=== PATIENT | male | born 1940 | race Caucasian/White ===

== ENCOUNTER 2017-04-03 13:43 | Emergency (ER) | payer MEDICARE, BC ==
[2017-04-03 15:30] VITALS: BP 144/84
--- NOTE | 2017-04-03 16:07 | UC ---
Ear Complaint HPI - HPI Summary HPI Summary: ear canals both feel full of cerumen has also had a significant decrease in hearing-tried otc remedies with out effect - History of Current Complaint Chief Complaint: UCEar Stated Complaint: EAR COMPLAINT Time Seen by Provider: 04/03/17 16:01 Hx Obtained From: Patient Onset/Duration: Gradual Onset, Lasting Weeks Severity Initially: Mild Severity Currently: Mild Pain Intensity: 3 Pain Scale Used: 0-10 Numeric Aggravating Factors: Nothing Alleviating Factors: Nothing Associated Signs/Symptoms: Positive: Hearing Loss, Foreign Body Sensation - cerumen - Allergies/Home Medications Allergies/Adverse Reactions: Allergies Allergy/AdvReac Type Severity Reaction Status Date / Time No Known Allergies Allergy Verified 04/03/17 15:31 PMH/Surg Hx/FS Hx/Imm Hx Previously Healthy: No Endocrine History: Dyslipidemia Cardiovascular History: Hypertension - Surgical History Surgical History: Yes Surgery Procedure, Year, and Place: prostate 2000 - Family History Known Family History: Positive: None - Social History Occupation: Retired Lives: With Family Alcohol Use: None Substance Use Type: None Smoking Status (MU): Never Smoked Tobacco Review of Systems Constitutional: Negative Skin: Negative Eyes: Negative ENT: Ear Ache - bilateral with cerumen impaction Respiratory: Negative Cardiovascular: Negative Gastrointestinal: Negative Genitourinary: Negative Motor: Negative Neurovascular: Negative Musculoskeletal: Negative Neurological: Negative Psychological: Negative Is Patient Immunocompromised?: No All Other Systems Reviewed And Are Negative: Yes Physical Exam Triage Information Reviewed: Yes Appearance: Well-Appearing, No Pain Distress, Well-Nourished Vital Signs: Initial Vital Signs Temp 98.1 F 04/03/17 15:25 Pulse 61 04/03/17 15:25 Resp 16 04/03/17 15:25 BP 144/84 04/03/17 15:25 Pulse Ox 98 04/03/17 15:25 Vital Signs Reviewed: Yes Eye Exam: Normal Eyes: Positive: Conjunctiva Clear ENT Exam: Normal ENT: Positive: Normal ENT inspection, Hearing grossly normal, Pharynx normal, Other - b/l cermen impaction. Negative: Nasal congestion Dental Exam: Normal Neck exam: Normal Neck: Positive: Supple, Nontender Respiratory Exam: Normal Respiratory: Positive: Chest non-tender, No respiratory distress, No accessory muscle use Cardiovascular Exam: Normal Cardiovascular: Positive: Pulses Normal, Brisk Capillary Refill Musculoskeletal Exam: Normal Musculoskeletal: Positive: Strength Intact, ROM Intact Neurological Exam: Normal Neurological: Positive: Alert, Muscle Tone Normal Psychological Exam: Normal Skin Exam: Normal Re-Evaluation - Re-Evaluation First Eval Change: Improved - Excellent relief of cerumen impaction, hearing much improved , feels better Ear Complaint Course/Dx - Course Course Of Treatment: avoid qtips follow BP with pcp - Differential Dx/Diagnosis Provider Diagnoses: hypertension in poor control, cerumen impaction bilaterally resolved Discharge - Discharge Plan Condition: Stable Disposition: HOME Patient Education Materials: Cerumen Impaction (ED), Hypertension (ED) Referrals: Loi Bingham MD [Primary Care Provider] - 1 Week
[2017-04-03] MEDS ORDERED: Docusate LIQ* 100 MG/10 ML UDC PO STA (16:39)
== END 2017-04-03 17:35 | disposition home or self-care (01) ==
LOC: UCEAST 13:43
DX: H61.23 Impacted cerumen, bilateral (principal); I10 Essential (primary) hypertension; E78.5 Hyperlipidemia, unspecified
CPT/HCPCS: 99213; A9270-GY; G0463

== ENCOUNTER 2019-12-13 16:56 | Inpatient (IN) ==
[2019-12-13 17:38] LABS: ABS Basophils 0.1 10^3/ul (0-0.2); ABS Eosinophils 0.3 10^3/ul (0-0.6); ABS Lymphocytes 2.4 10^3/ul (1.0-4.8); ABS Monocytes 0.5 10^3/ul (0-0.8); ABS Neutrophils 7.3 10^3/ul (1.5-7.7); Eosinophil % 2.6 %; Hematocrit 47 % (42-52); Hemoglobin 16.2 g/dL (14.0-18.0); Lymphocyte % 22.5 %; Mean Corpuscular HGB Conc 34 g/dL (31-36); Mean Corpuscular Hemoglobin 33 pg (27-31); Mean Corpuscular Volume 95 fL (80-94); Nucleated Red Blood Cells % 0.1; Platelet Count 182 10^3/uL (150-450); Red Blood Count 4.99 10^6 /uL (4.18-5.48); Red Cell Distribution Width 15 % (10-15); White Blood Count 10.6 10^3/uL (3.5-10.8)
[2019-12-13 17:54] LABS: Albumin 4.1 g/dL (3.2-5.2); Albumin/Globulin Ratio 1.5 (1-3); BUN/Creatinine Ratio 13.7 (8-20); Calcium 9.5 mg/dL (8.6-10.3); EGFR African American 92.5 (>60); EGFR Non-African American 76.5 (>60); Globulin 2.7 g/dL (2-4); Potassium 4.2 mmol/L (3.5-5.0); Total Bilirubin 0.5 mg/dL (0.2-1.0); Total Protein 6.8 g/dL (6.4-8.9)
[2019-12-13] MEDS ORDERED: Iohexol 300 (CONTRAST) 10 ML SDV IV ONE (17:56)
[2019-12-13] MEDS ORDERED: Ondansetron 4 mg VIAL 2 MG/ML 2 ml VIAL IV ONE (18:02)
[2019-12-13] MEDS ORDERED: Morphine 4 MG/ML VIAL (1 ml) IV ONE (18:02)
[2019-12-13] MEDS ORDERED: NS 0.9% 1000 ml BAG 1,000 ML IV ONE (19:43)
[2019-12-14] MEDS ORDERED: oxyCODONE/Acetamin 5/325 mg TAB PO PRN (00:30)
[2019-12-14] MEDS: NS 0.9% 1000 ml BAG 1,000 ML IV SCH ×2 (04:24→17:54)
[2019-12-14] MEDS ORDERED: NS 0.9% 500 ml BAG 500 ML IV ONE (08:08)
[2019-12-14] MEDS: Multivitamins/Minerals TAB PO SCH (10:19)
[2019-12-15 05:04] LABS: BUN/Creatinine Ratio 18.8 (8-20); EGFR African American 133.8 (>60); EGFR Non-African American 110.6 (>60); Potassium 4.4 mmol/L (3.5-5.0)
[2019-12-15 06:16] LABS: ABS Eosinophils 0.2 10^3/ul (0-0.6); ABS Lymphocytes 1.3 10^3/ul (1.0-4.8); ABS Monocytes 0.9 10^3/ul (0-0.8); ABS Neutrophils 5.9 10^3/ul (1.5-7.7); Hematocrit 38 % (42-52); Hemoglobin 13.1 g/dL (14.0-18.0); Lymphocyte % 16.1 %; Mean Corpuscular HGB Conc 34 g/dL (31-36); Mean Corpuscular Hemoglobin 32 pg (27-31); Mean Corpuscular Volume 94 fL (80-94); Platelet Count 130 10^3/uL (150-450); Red Blood Count 4.07 10^6 /uL (4.18-5.48); Red Cell Distribution Width 14 % (10-15); White Blood Count 8.3 10^3/uL (3.5-10.8)
[2019-12-15] MEDS: Multivitamins/Minerals TAB PO SCH (08:28)
[2019-12-15] MEDS: Magnesium Hydroxide LIQ 30 ML UDC PO PRN (15:19)
[2019-12-16 05:35] LABS: ABS Eosinophils 0.3 10^3/ul (0-0.6); ABS Lymphocytes 1.5 10^3/ul (1.0-4.8); ABS Monocytes 0.7 10^3/ul (0-0.8); ABS Neutrophils 4.6 10^3/ul (1.5-7.7); Eosinophil % 3.9 %; Hematocrit 38 % (42-52); Hemoglobin 13.1 g/dL (14.0-18.0); Lymphocyte % 21.6 %; Mean Corpuscular HGB Conc 35 g/dL (31-36); Mean Corpuscular Hemoglobin 32 pg (27-31); Mean Corpuscular Volume 93 fL (80-94); Platelet Count 120 10^3/uL (150-450); Red Blood Count 4.06 10^6 /uL (4.18-5.48); Red Cell Distribution Width 14 % (10-15); White Blood Count 7.1 10^3/uL (3.5-10.8)
[2019-12-16 05:45] LABS: BUN/Creatinine Ratio 13.9 (8-20); Calcium 8.2 mg/dL (8.6-10.3); EGFR African American 114.5 (>60); EGFR Non-African American 94.6 (>60); Potassium 4.2 mmol/L (3.5-5.0)
[2019-12-16] MEDS: Magnesium Hydroxide LIQ 30 ML UDC PO PRN ×2 (08:55→22:23)
[2019-12-16] MEDS: Multivitamins/Minerals TAB PO SCH (08:56)
[2019-12-16] MEDS: Polyethylene Glycol 3350 17 GM PACKET PO PRN (12:02)
[2019-12-16] MEDS: Glycerin ADULT 2.4 gm SUPP PR PRN (16:57)
[2019-12-16] MEDS: Senna TAB 8.6 mg TAB PO SCH (22:21)
[2019-12-17] MEDS: Multivitamins/Minerals TAB PO SCH (08:37)
[2019-12-17] MEDS: Enoxaparin 40 MG/0.4 ML SYR SUBCUT SCH (08:37)
[2019-12-17] MEDS: Polyethylene Glycol 3350 17 GM PACKET PO PRN (17:08)
[2019-12-17] MEDS: Senna TAB 8.6 mg TAB PO SCH (22:32)
[2019-12-18] MEDS: Glycerin ADULT 2.4 gm SUPP PR PRN (06:09)
[2019-12-18] MEDS: Magnesium Hydroxide LIQ 30 ML UDC PO PRN (06:09)
[2019-12-18] MEDS: Multivitamins/Minerals TAB PO SCH (09:36)
[2019-12-18] MEDS: Enoxaparin 40 MG/0.4 ML SYR SUBCUT SCH (09:37)
[2019-12-18] MEDS: Senna TAB 8.6 mg TAB PO SCH (22:26)
[2019-12-19] MEDS: Enoxaparin 40 MG/0.4 ML SYR SUBCUT SCH (09:20)
[2019-12-19] MEDS: Multivitamins/Minerals TAB PO SCH (09:20)
[2019-12-19] MEDS: Magnesium Hydroxide LIQ 30 ML UDC PO PRN (14:41)
[2019-12-19] MEDS: Polyethylene Glycol 3350 17 GM PACKET PO PRN (14:41)
[2019-12-19] MEDS: Senna TAB 8.6 mg TAB PO SCH (22:44)
[2019-12-20 08:20] VITALS: BP 109/72
[2019-12-20] MEDS: Enoxaparin 40 MG/0.4 ML SYR SUBCUT SCH (09:55)
[2019-12-20] MEDS: Multivitamins/Minerals TAB PO SCH (09:58)
== END 2019-12-20 11:10 | disposition swing bed (61) | DRG 552 ==
LOC: SSU 16:56 → ED 16:56 → SSU 12-14 02:26
PROVIDERS: ADMIT Internal Medicine; ATTEND Internal Medicine